=== PATIENT | male | born 1955 | race Caucasian/White ===

== ENCOUNTER 2023-06-04 14:33 | Outpatient (CLI) | payer MEDICARE, MEDICAID, SELFPAY ==
--- NOTE | ~2023-06-04 | MR_ITS ---
MRI of the thoracic spine Clinical History: Gait instability Technique: Axial T2-weighted and gradient images, and sagittal T1-weighted, T2-weighted, and STIR nereyda ges were acquired. Findings: There is no fracture or subluxation of the thoracic spine. Vertebral bodies maintain normal height and alignment. No bone marrow signal abnormality seen. No significant disc bulge or herniation seen in the thoracic spine. There is advanced facet arthropat hy at T10-T11 bilaterally. And mild compression of the thecal sac at this level posteriorly. No other areas of spinal canal stenosis or cord compression identified. No abnormal signal seen in the spinal cord. Paravertebral soft tissues are unremarkable. Impression: Advanced facet arthropathy bilaterally at T10-T11, with mild compression of the thecal sac posteriorl y at this level, but no yash cord compression. No other significant abnormalities are identified. Reviewed, dictated and finalized at [facility]. Impression: Advanced facet arthropathy bilaterally at T10-T11, with mild compression of the thecal sac posteriorly at this level, but no yash cord compression. No other significant abnormalities are identified.
--- NOTE | ~2023-06-04 | MR_ITS ---
MRI of the cervical spine Clinical History: Gait instability Technique: Axial T2-weighted and gradient images, and sagittal T1-weighted, T2-weighted, and STIR nereyda ges were acquired. Findings: No fracture identified. There is minimal grade 1 retrolisthesis of C3 over C4. No suspiciou s bone marrow signal abnormality seen. At C2-C3, there is disc ossify complex, most pronounced in the left foraminal region, with associated bilateral facet arthropathy, left worse than right. There is severe left neural foraminal narrowing. Right neural foramen may be minimally narrowed. There is mild central canal stenosis and probable mi nimal ventral cord flattening. At C3-C4, there is degenerative disc narrowing. Disc osteophyte complex and facet arthropathy are pre sent, resulting in severe spinal canal stenosis and associated cord compression. There is severe bila teral neural foraminal narrowing. At C4-C5, there is disc osteophyte complex resulting in mild to moderate canal stenosis and probable minimal cord compression. There is severe bilateral neural foraminal narrowing with bilateral facet a rthropathy. At C5-C6, there is disc osteophyte complex, resulting in minimal canal stenosis. There is advanced bi lateral neural foraminal narrowing, right worse than left, with bilateral facet arthropathy. At C6-C7, there is disc osteophyte complex, resulting in minimal flattening the ventral cord. There i s advanced bilateral neural foraminal narrowing, right worse than left. There is cord edema at the C3-C4 levels, compatible compressive myelomalacia. Paravertebral soft tiss ues are unremarkable. Impression: Severe degenerative spondylosis. Multifactorial severe spinal canal stenosis and associated cord comp ression at C3-C4, with associated cord edema/myelomalacia changes at this level. Mild to moderate canal stenosis at C4-C5 with probable minimal cord flattening. Mild central canal stenosis and minimal ventral cord flattening at C2-C3. Multilevel neural foraminal narrowing throughout the cervical spine, as detailed above. Minimal grade 1 retrolisthesis of C3 over C4. Reviewed, dictated and finalized at [facility]. Impression: Severe degenerative spondylosis. Multifactorial severe spinal canal stenosis an d associated cord compression at C3-C4, with associated cord edema/myelomalacia changes at this level. Mild to moderate canal stenosis at C4-C5 with probable minimal cord flattening. Mild central canal stenosis and minimal ventral cord flattening at C2-C3. Multilevel neural foraminal narrowing throughout the cervical spine, as detaile d above. Minimal grade 1 retrolisthesis of C3 over C4.
== END 2023-06-04 14:34 | disposition home or self-care (01) ==
PROVIDERS: Visit Provider Neurological Surgery
DX: M47.812 Spondylosis without myelopathy or radiculopathy, cervical region (principal); M48.02 Spinal stenosis, cervical region; M47.814 Spondylosis without myelopathy or radiculopathy, thoracic region; R26.81 Unsteadiness on feet
CPT/HCPCS: 72141; 72146